=== PATIENT | female | born 1990 | race Two or more races ===

== ENCOUNTER 2022-03-17 10:00 | Inpatient (IN) | payer OTHER ==
[~2022-03-17] VITALS: Ht 162.6 cm; Wt 81.6 kg
[2022-03-17] MEDS ORDERED: TOPROL XL50 M1 PO (14:47)
== END 2022-03-20 16:17 | disposition home or self-care (01) | DRG 743 ==
LOC: O/R 03-18 07:31 → OB/GYN 03-18 07:31
PROVIDERS: ADMIT Specialist; ATTEND Specialist
PROC: 0UT70ZZ Resection of Bilateral Fallopian Tubes, Open Approach (ICD-10-PCS; 2022-03-18)
PROC: 0UB10ZZ Excision of Left Ovary, Open Approach (ICD-10-PCS; 2022-03-18)
PROC: 0UT90ZZ Resection of Uterus, Open Approach (ICD-10-PCS; principal; 2022-03-18 14:30)
DX: D25.9 Leiomyoma of uterus, unspecified (principal); N72 Inflammatory disease of cervix uteri; Z20.822 Contact with and (suspected) exposure to COVID-19